=== PATIENT | male | born 1970 | race Caucasian/White ===

== ENCOUNTER → 2021-05-21 | Outpatient (CLI) | payer BC ==
[2014-08-13 08:56] VITALS: BP 122/71
[~2021-05-21] MED LIST: MULT-445 PO; OMEG300C PO
== END ==
LOC: LAB 10:15
PROVIDERS: ATTEND Family Medicine
DX: Z20.822 Contact with and (suspected) exposure to COVID-19 (principal)
CPT/HCPCS: U0003; U0005